=== PATIENT | female | born 1995 | race Caucasian/White ===

== ENCOUNTER 2017-07-24 21:26 | Emergency (ER) | payer OTHER ==
[2017-07-24 22:08] VITALS: BP 102/60
== END 2017-07-24 23:34 | disposition home or self-care (01) ==
LOC: ED 21:26
DX: I65.8 Occlusion and stenosis of other precerebral arteries (principal)

== ENCOUNTER 2018-04-12 03:22 | Emergency (ER) | payer OTHER ==
[~2018-04-12] VITALS: Ht 160 cm; Wt 62.7 kg
[2018-04-12 03:44] VITALS: Ht 160 cm; Wt 62.7 kg
[2018-04-12 06:53] VITALS: BP 105/69
== END 2018-04-12 06:53 | disposition home or self-care (01) ==
LOC: ED 03:22
DX: J36 Peritonsillar abscess (principal)
CPT/HCPCS: J0696; J1100